=== PATIENT | female | born 1970 | race Caucasian/White ===

== ENCOUNTER 2019-01-02 07:57 | Day surgery (SDC) | payer BC ==
[~2019-01-02] VITALS: Ht 167.6 cm; Wt 81.7 kg
[~2019-01-02 07:57] MED LIST: LEXAPRO20 MG PO; MAGNESIUM400 M1 PO
[2019-01-02] MEDS ORDERED: DEXTROAMP-AMPHE15 MG PO (08:11)
--- NOTE | 2019-01-02 09:22 | NUR ---
PT TAKEN TO RADIOLOGY SL.
--- NOTE | 2019-01-02 10:51 | NUR ---
RETURNED FROM [facility].
--- NOTE | 2019-01-02 12:58 | NUR ---
01/02/19 1258 FANTASMA MARIN PATIENT ARRIVED FROM OR AT 1248. PATIENT RESTING COMFORTABLY. PATIENT HAS A NATURAL AIRWAY AND 02 SAT ARE AT 100 PERCENT. PATIENT RESPONDS TO VOICE AND FOLLOWS INSTRUCTIONS. PATIENT DENIES PAIN AND NAUSEA. VITALS SIGNS ARE WITHIN 20% OF PRE OP VITALS.
[2019-01-02] MEDS ORDERED: IBUPROFEN600 MG PO (13:03)
[2019-01-02] MEDS ORDERED: OXYCODON-ACETA1 EAC2 PO (13:03)
[2019-01-02] MEDS ORDERED: TYLENOL EXTRA500 MG PO (13:03)
--- NOTE | 2019-01-03 10:24 | OR ---
[facility] [address], [place] [address] Signed DATE OF OPERATION: 01/02/2019 SURGEON: Zeina Palacios MD PREOPERATIVE DIAGNOSIS: Left abnormal mammogram, lower central breast. POSTOPERATIVE DIAGNOSIS: Left abnormal mammogram, lower central breast, palpable nodule identified. PROCEDURE: Needle localized excisional breast biopsy, left side. ANESTHESIA: General LMA; Zeina Sellers CRNA INDICATION: This 48-year-old white woman is a patient of Maricel Guy, and underwent mammographies, where she was found to have a very subtle nodule that was highly suspicious in the posterior aspect of the left breast. Conventional mammogram and ultrasound found it difficult to allow for percutaneous biopsy. An MRI was performed showing the lesion to be highly suspicious for cancer. It is in a peculiar position in the central left breast next to the chest wall. As conventional image guided biopsy is not possible, consideration is made for a needle localized excisional biopsy. The risks of bleeding, infection, cosmetic deformity, need for additional treatment of cancers found, and other unforeseen complications including failure to identify the lesion were all reviewed with the patient and her . They understand and wished to proceed. FINDINGS: Wire localization was challenging, but was accomplished. One of the wires was a bit too short in its trajectory, the other is a bit too long, but with these facts in mind, wide excision next to the chest wall allowed for complete extirpation of the tissue including the lesion itself. The lesion once excised was palpable and a clip was used to noemy it in the specimen. Specimen radiograph confirmed the lesion in question to be in the excised specimen. DESCRIPTION OF PROCEDURE: The patient was received from radiology suite, having had difficult localization, but with two wires emanating from the lateral inferior aspect of the left breast. Review of the images with radiologist allowed for an optimal approach to the lesion, which was Electronically Signed By: ZEINA PALACIOS MD 01/03/19 [facility] PATIENT NAME: MATTIE WHITE OPERATIVE REPORT DATE OF : 74 REPORT #: [id number] PHYSICIAN: ZEINA PALACIOS MD PCP: MARICEL GUY PA-C REPORT IS CONFIDENTIAL AND NOT TO BE RELEASED WITHOUT AUTHORIZATION [facility] [address], [place] [address] Signed considered difficult in its position for imaging. She was given a general LMA type anesthetic. Preoperative antibiotic Ancef was given. Sequential compression device stockings were used. The breast was prepared with spray Betadine solution and draped sterilely. An inferolateral incision was made in the left breast, not far from where the wires emanated from the breast in line of the natural skin tension and breast crease. Dissection was carried through the dermis. The wires were delivered into the wound. A flap was elevated superiorly and medially and excision with cautery undertaken. Following of the wire showed the appropriate path and dissection was carried mindful of position of both localizing wires. Dissection was carried near the chest wall as well. Indeed, the pectoralis was the posterior aspect of the margin. Wide full excision certainly to the central portion of the breast was undertaken. Explantation of the breast tissue showed good hemostasis. Palpation of the specimen revealed a nodule, which was hard and highly suspicious for malignancy. This was marked with a clip for radiologist orientation. Specimen radiograph confirmed the lesion in question to be in the excised specimen. Irrigation was undertaken in the wound. There was good hemostasis. Electrocautery was used to assure that. The wound was closed in layers in interrupted 2-0 Vicryl and running subcuticular 3-0 Vicryl for the skin. Steri-Strips were applied as was a Mepilex silver sponge dressing and an OpSite. The procedure was prolonged, complicated, and difficult, but accomplished safely and successfully. MD KACEY Quintanilla/MIGUELL /[id number] cc: KELSEY Solo MD Copies: KEITH BILL MD ~ Electronically Signed By: ZEINA PALACIOS MD 01/03/19 1024 PATIENT NAME: MATTIE WHITE OPERATIVE REPORT DATE OF : 74 REPORT #: [id number] PHYSICIAN: ZEINA PALACIOS MD PCP: MARICEL GUY PA-C REPORT IS CONFIDENTIAL AND NOT TO BE RELEASED WITHOUT AUTHORIZATION
--- NOTE | 2019-01-05 17:25 | PATH ---
[facility] [address] [facility] [place], [place] [address] Signed SPECIMEN(S): A LEFT LOWER CENTRAL BREAST SPECIMEN SOURCE: A. LEFT LOWER CENTRAL BREAST CLINICAL HISTORY: Lesion suspicious for malignancy based on imaging studies. Left breast excisional biopsy with imaging guided needle localization. 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 - Specimen integrity: Intact. - Tumor size: 1.1 x 0.9 x 0.8 cm. - Histologic type: Invasive ductal carcinoma. - Histologic grade: - Tubular formation: 3 of 3. - Nuclear pleomorphism: 2 of 3. - Mitotic rate: 1 of 3. - Total score: 6 of 9, grade 2 of 3. - Margins: All examined margins of excision free of neoplasm. - Closest margin: 0.2 cm. - Ductal carcinoma in situ: Present, low grade, solid/cribriform, no comedonecrosis. - Margin free, >0.5 cm. - Lobular carcinoma in situ: Absent. - Lymphovascular invasion: Not identified. - Microcalcifications: Not identified. - Additional pathologic findings: Small foci of fibrocystic disease with the features of fibrosis, cyst formation, usual ductal hyperplasia, sclerosing adenosis. - Estrogen receptor by immunohistochemistry: 95% positive, staining intensity 2-3+/4+. - Progesterone receptor by immunohistochemistry: 95% positive, staining intensity 3+-4+/4+. - Ki-67 index: 11.6% - Pathologic staging: pT1c PNX - HER2 by FISH will be performed and reported as an addendum. PATIENT NAME: MATTIE WHITE PATHOLOGY DATE OF : 74 REPORT #: [id number] PHYSICIAN: [facility] PCP: MARICEL CHENG PA-C REPORT IS CONFIDENTIAL AND NOT TO BE RELEASED WITHOUT AUTHORIZATION [facility] [address] [place], [place] [address] Signed COMMENT: As part of [employer]' Quality Improvement Program, this case was reviewed by another member of our pathology staff. BERTA:NRT:cml:C1NR MICROSCOPIC EXAMINATION: Histologic sections of all submitted blocks are examined by light microscopy. These findings, together with the gross examination, support the pathologic diagnosis. Immunostains for E-cadherin and smooth muscle myosin heavy chain are obtained along with appropriately positive controls on material from cassettes (A1, A2). Immunostains for estrogen receptor, progesterone receptor and Ki-67 are obtained along with appropriately positive controls on material from cassette (A2). HER2 by FISH is performed on material from cassette (A2) and will be reported as an addendum. GROSS DESCRIPTION: The specimen, labeled "CP left lower central breast," is received in formalin and consists of a 51 g, unoriented portion of yellow-peng fibroadipose tissue that is 8.7 x 5.2 x 3.0 cm. The specimen is received within an Accu grid plate and radiograph. Two metal localization wires are present. A radiograph identifies an area of interest. The corresponding area on the specimen is inked green. The remainder of the specimen is inked black. The specimen is serially sectioned perpendicular to the long axis, revealing a 1.1 x 0.9 x 0.8 cm white, firm stellate mass, which is located within the area of interest, 0.6 cm from the closest green soft tissue resection margin, and 0.7 cm from the closest black soft tissue resection margin. Adjacent to this mass is a folded metallic clip. Approximately 90% of the specimen is a yellow-peng greasy adipose tissue and 10% is a pink rubbery fibrous tissue. Channel Rebuilder sections are submitted in nine cassettes. Cassette summary: (A1-A3) mass to closest soft tissue resection margins (A4-A7) soft tissue resection margins, business center representative sections (A9-A10) fibroadipose tissue. Cold ischemia time: Insufficient data to calculate. Approximate Formalin time: 12-36 hours. FB (under the direct supervision of a pathologist) The Gross Description was prepared using a voice recognition system. The PATIENT NAME: MATTIE WHITE PATHOLOGY DATE OF : 74 REPORT #: [id number] PHYSICIAN: DEONDRE SEGURA PCP: MARICEL CHENG PA-C REPORT IS CONFIDENTIAL AND NOT TO BE RELEASED WITHOUT AUTHORIZATION [address] [address] Signed report was reviewed for accuracy; however, sound-alike word errors, addition and/or deletions may occur. If there is any question about this report, please contact Client Services. ADDITIONAL NOTES: Immunohistochemical and/or in situ hybridization studies were performed on this case with the appropriate positive controls that react as expected. This test was developed and its performance characteristics determined by [facility] [facility]. It has not been cleared or approved by the U.S. Food and Drug Administration. The FDA has determined that such clearance or approval is not necessary. This test is used for clinical purposes. It should not be regarded as investigational or for research. [facility] [facility] is certified under the Clinical Laboratory Improvement Amendments of 1988 (CLIA) as qualified to perform high complexity clinical laboratory testing. PERFORMING LABORATORY: The technical component was performed by [facility] [facility], [address] [place] [id number] (Compensation Programs Manager: Nguyen Craig MD; CLIA# [id number]). [facility] [address] [place] [address] (Compensation Programs Manager: Doni Torres MD; CLIA# [id number]). Diagnostician: Doni Torres MD Pathologist Electronically Signed 01/05/2019 Copies: ~ PATIENT NAME: MATTIE WHITE PATHOLOGY DATE OF : 74 REPORT #: [id number] PHYSICIAN: DEONDRE SEGURA PCP: MARICEL CHENG PA-C REPORT IS CONFIDENTIAL AND NOT TO BE RELEASED WITHOUT AUTHORIZATION
== END 2019-01-02 14:30 | disposition home or self-care (01) ==
LOC: OPS 07:57 → DS 07:58 → OPS 09:00 → DS 09:00 → EDSTATUS 09:00 → MAM 09:30 → OPS 09:30
PROVIDERS: Surgery
PROC: 0HBU0ZX Excision of Left Breast, Open Approach, Diagnostic (ICD-10-PCS; principal; 2019-01-02 10:45)
DX: C50.112 Malignant neoplasm of central portion of left female breast (principal); F32.9 Major depressive disorder, single episode, unspecified; F17.210 Nicotine dependence, cigarettes, uncomplicated; F41.9 Anxiety disorder, unspecified; G89.29 Other chronic pain; Z17.0 Estrogen receptor positive status [ER+]; Z88.0 Allergy status to penicillin; Z79.899 Other long term (current) drug therapy
CPT/HCPCS: 00404; 19281; 76098; 99406; J0131; J0690; J1100; J1644; J1885; J2405; J2704; J2765; J3010; J7120

== ENCOUNTER 2019-02-28 06:25 | Day surgery (SDC) | payer BC ==
[~2019-02-28] VITALS: Ht 167.6 cm; Wt 80.7 kg
[~2019-02-28 06:25] MED LIST changes: +DEXTROAMP-AMPHE15 MG PO; +IBUPROFEN600 MG PO; +OXYCODON-ACETA1 EAC2 PO; +TYLENOL EXTRA500 MG PO
--- NOTE | 2019-02-28 08:01 | NUR ---
to xray with network support technician per [id number].
--- NOTE | 2019-02-28 09:09 | NUR ---
pt returned from xray. iv connected and running,site benign. denies any needs. at bs.
[2019-02-28] MEDS ORDERED: IBUPROFEN600 MG PO (11:57)
[2019-02-28] MEDS ORDERED: OXYCODON-ACETA1 EAC2 PO (11:57)
[2019-02-28] MEDS ORDERED: TYLENOL EXTRA500 MG PO (11:58)
--- NOTE | 2019-02-28 12:14 | NUR ---
PT IS BACK TO DS FROM PACU. SHE IS BACK TO HER BASELINE, IS AT THE BEDSIDE. HE IS LEAVING TO DROP OFF RX. PT IS TOLERATING SIPS OF WATER. CALL LIGHT WITHIN REACH. NO ADDITIONAL NEEDS.
--- NOTE | 2019-02-28 12:15 | NUR ---
02/28/19 1215 Maggie Vieira 1122 PT ARRIVED IN PACU NON RESPONSIVE WITH OPA IN PLACE ON RA. O2 SATS 87%. 02 AT 6L VIA MASK PLACED AND SATS INCREASED TO 99%. 1037 OFIRMEV 1GM GIVEN IV PER ANESTHESIA REQUEST. 1140 PT REACTIVE. OPA REMOVED. 1145 PT SITTING UP IN BED VISITING WITH STAFF. 1155 DR AT BEDSIDE TALKING WITH PT. ALL QUESTIONS ANSWERED. 1205 TO DS ROOM 10. RX GIVEN TO SPOUSE.
--- NOTE | 2019-02-28 12:56 | NUR ---
MARIA DOLORES 1230: [facility] CALLED FOR BREAST PRINTING TECHNICIAN. SHE IS GOING TO STOP BY FOR A QUICK CONSULT.
--- NOTE | 2019-02-28 13:07 | NUR ---
BREAST BINITROTOLUENE OPERATOR IN WITH PT UPON ENTERING THE ROOM. SHE HAS STARTED TO GET HERSELF DRESSED. SHE IS TOLERATING WATER AND PUDDING. CALL LIGHT WITHIN REACH. NO ADDITIONAL NEEDS.
--- NOTE | 2019-02-28 14:31 | NUR ---
PT AND ARE GIVEN VERBAL DC INSTRUCTIONS, THEY BOTH VERBALIZE UNDERSTANDING. PT AND ARE SHOWN HOW TO CARE FOR THE AKASH DRAIN. QUESTIONS ARE ANSWERED. PT IS TAKEN TO VEHICLE VIA WC, SHE IS TABLE TO TRANSFER HERSELF FORM WC TO VEHICLE.
--- NOTE | 2019-03-02 16:20 | OR ---
[facility] [address] [place], [place] [address] Signed DATE OF OPERATION: 02/28/2019 SURGEON: Zeina Palacios MD PREOPERATIVE DIAGNOSES: 1. 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 2. Negative margins on infiltrating ductal carcinoma and negative but small margin on ductal carcinoma in situ (0.5 mm). POSTOPERATIVE DIAGNOSES: 1. 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 2. Negative margins on infiltrating ductal carcinoma and negative but small margin on ductal carcinoma in situ (0.5 mm). 3. Frozen pathology and sentinel lymph nodes negative. PROCEDURES: 1. Injection of left breast for sentinel lymph node identification with methylene blue dye. 2. Deep axillary sentinel lymph node biopsies. 3. Left partial mastectomy (re-excision of prior partial mastectomy site with application of clips for marking). ANESTHESIA: General LMA; Tyrell Buckley, EXECUTIVE CHEF and local 10 mL of 0.25% Marcaine with epinephrine. DRAINS: 7 mm Daniel (submammary). INDICATION: This 48-year-old white woman is a patient of Maricel Guy, and known to me from the past. She underwent mammography, which demonstrated a suspicious lesion of the left breast in the central portion not far from the pectoralis muscle itself. This was considered inaccessible for adequate image-guided biopsy. On that basis, she underwent a left needle localized excisional biopsy through an incision in the inframammary crease on the left lateral aspect. The lesion was confirmed to be an infiltrating ductal breast carcinoma 1.1 cm in size with an ER/CO positive and HER-2/fabien negative. The margin on the infiltrating ductal carcinoma was negative. There was some additional DCIS noted nearby. That margin was also negative at 0.5 mm. She does not have family Electronically Signed By: ZEINA PALACIOS MD 03/02/19 1620 PATIENT NAME: MATTIE WHITE OPERATIVE REPORT DATE OF : 74 REPORT #: [id number] PHYSICIAN: ZEINA PALACIOS MD PCP: MARICEL GUY PA-C REPORT IS CONFIDENTIAL AND NOT TO BE RELEASED WITHOUT AUTHORIZATION [facility] [address] [place], [place] [address] Signed history of breast cancer. She has been advised by medical oncologist and radiation therapist that additional margin should be undertaken of the ductal carcinoma in situ as the current standard is dependent on a 2 mm margin currently. Although, I advised her that additional resection usually results in no evidence of retained malignancy, she does wish to pursue additional re-excision and on that basis, she will not only undergo staging sentinel lymph node biopsy, but re-excision of the biopsy cavity site despite its complex location. The risks of bleeding, infection, need for axillary dissection, and other unforeseen complications related to operation was reviewed with her. She understands and wished to proceed. FINDINGS: Good uptake was noted with radionuclide to at least three lymph nodes of the left axilla. Methylene blue dye was only minimally taken up in the lymph nodes. Arborization in the region of the areola was noted. As regard to re-excision of the previous partial mastectomy, this was challenging as it was located in the central portion of the breast. Wide excision was undertaken including the slick cavity from which excision was undertaken. Dissection was carried down to and including portions of the pectoralis muscle. A drain was left in place on the possibility of seroma formation. Frozen pathology confirmed no evidence of malignancy in the sentinel lymph nodes evaluated. DESCRIPTION OF PROCEDURE: The patient was brought to the operating room, given a general LMA type anesthetic. Preoperative antibiotic Ancef was given. Sequential compression device stockings used and heparin subcutaneously administered. Radionuclide injection by Dr. Hou showed up taken to the left axilla as expected. The left breast was gently prepared with alcohol swab in the areolar margin on the left side. An injection of 1 mL of methylene blue dye in the subepithelial space was undertaken. The left breast and axilla were then prepared with a chlorhexidine solution rather a Betadine-based solution and draped sterilely. The previous incision from the partial mastectomy was in the inferior mammary crease laterally. Interrogation of left axilla with a C-Trak probe was undertaken and the area of maximum uptake incised and dissection carried through the subcutaneous tissue and axillary fat Electronically Signed By: ZEINA PALACIOS MD 03/02/19 1620 PATIENT NAME: MATTIE WHITE OPERATIVE REPORT DATE OF : 74 REPORT #: [id number] PHYSICIAN: ZEINA PALACIOS MD PCP: MARICEL GUY PA-C REPORT IS CONFIDENTIAL AND NOT TO BE RELEASED WITHOUT AUTHORIZATION [facility] [address] [place] [id number] Signed with blunt dissection. Using the sterile covered probe, axillary lymph node tissue was identified. There did not appear to be much blue uptake in the nodes. Initial node was excised and clips were applied to the lymphatic and vascular pedicles associated with it. This was labeled sentinel lymph node #1. It was quite hot on the probe. Additional dissection was undertaken and several lymph nodes were identified, some of which had no radionuclide or dye uptake. These were excised incidentally with that at least two other clearly hot sentinel nodes. Several clips remain in the axilla on this. These sentinel lymph nodes were sent for frozen pathology and the wound was then packed when there was minimal additional radio signal in the axilla. While the pathologist was working on frozen pathology, re-excision of the previous biopsy cavity was undertaken. An incision was made in the inframammary lateral aspect as before and dissection carried through the subcutaneous tissue with electrocautery. Using Allis clamps to grasp the tissue, a wide resection was undertaken of the biopsy/partial mastectomy tract. Notably, this extended to the central portion of the breast and down to the pectoralis. A seroma cavity type area was identified and this was excised as well including the pectoralis fascia itself. Clips were applied to the area for future boost radiation therapy if deemed appropriate. Hemostasis was assured with some clips and electrocautery throughout. Irrigation was undertaken showing no sign of ongoing bleeding. Given the extent of dissection and so forth, it was deemed advisable to place a drain in the submammary space. Through a separate stab incision, a 7 mm Daniel drain was placed in this area. The wound was closed with interrupted 2-0 Vicryl and a running subcuticular 3-0 Vicryl. Re-examination of the axilla showed no sign of bleeding. This wound was closed with interrupted 2-0 Vicryl and running subcuticular 3-0 Vicryl as well. At this point, the frozen pathology of the sentinel lymph nodes confirmed none to have metastatic breast cancer. Steri-Strips were applied to the wounds as well as a conversion of a silver sponge dressing to each site. The drain was applied to bulb suction after being secured to the skin with nylon suture. She was ultimately extubated and transferred to recovery room in good condition having suffered no complications. Sponge, needle, and instrument counts reported as correct x3. MD KACEY Quintanilla/MODL /[id number] Electronically Signed By: ZEINA PALACIOS MD 03/02/19 1620 PATIENT NAME: MATTIE WHITE OPERATIVE REPORT DATE OF : 74 REPORT #: [id number] PHYSICIAN: ZEINA PALACIOS MD PCP: MARICEL GUY PA-C REPORT IS CONFIDENTIAL AND NOT TO BE RELEASED WITHOUT AUTHORIZATION [address] [address] Signed cc: MD Johnathan Thacekr MD Jacqueline Brown, PA-C Copies: KEITH HOU MD, ROBERT C MD ~ Electronically Signed By: ZEINA PALACIOS MD 03/02/19 1620 PATIENT NAME: MATTIE WHITE OPERATIVE REPORT DATE OF : 74 REPORT #: [id number] PHYSICIAN: ZEINA PALACIOS MD PCP: MARICEL GUY PA-C REPORT IS CONFIDENTIAL AND NOT TO BE RELEASED WITHOUT AUTHORIZATION
--- NOTE | 2019-03-05 10:17 | PATH ---
[facility] [address] [facility] [place], [place] [address] Signed SPECIMEN(S): A LEFT SENTINEL LYMPH NODE SPECIMEN(S): B LEFT SENTINEL LYMPH NODE SPECIMEN(S): C LEFT SENTINEL LYMPH NODE SPECIMEN(S): D LEFT BREAST SPECIMEN(S): E LEFT BREAST ADDITIONAL TISSUE SPECIMEN(S): F LEFT BREAST ADDITIONAL AXILLARY TISSUE SPECIMEN SOURCE: A. LEFT SENTINEL LYMPH NODE B. LEFT SENTINEL LYMPH NODE C. LEFT SENTINEL LYMPH NODE D. LEFT BREAST E. LEFT BREAST ADDITIONAL TISSUE F. LEFT BREAST ADDITIONAL AXILLARY TISSUE CLINICAL HISTORY: Left breast cancer. Left breast lumpectomy with SLN biopsy with possible axillary dissection with frozen. FROZEN SECTION DIAGNOSIS: A.[place] lymph node #1: - Negative for carcinoma. Canleo Broussard DO 02/28/19 11:17 a.m. B.[place] lymph node #2: - Negative for carcinoma. Canelo Broussard DO 02/28/19 11:17 a.m. C.Left axilla lymph node, marked by suture: - Negative for carcinoma. Canelo Broussard DO 02/28/19 11:17 a.m. DDF:cml FINAL PATHOLOGIC DIAGNOSIS: A. Left axillary sentinel lymph node #1, excision: - One lymph node, negative for metastatic malignancy on HE and immunostained slides. B. Left axillary sentinel lymph nodes #2 and #3, excision: - Two lymph nodes, negative for metastatic malignancy on HE and immunostained slides. C. Left axillary sentinel lymph nodes, excision: - Three left axillary sentinel lymph nodes, negative for metastatic malignancy on HE and immunostained slides. PATIENT NAME: MATTIE WHITE PATHOLOGY DATE OF : 74 REPORT #: [id number] PHYSICIAN: DEONDRE SEGURA PCP: MARICEL CHENG PA-C REPORT IS CONFIDENTIAL AND NOT TO BE RELEASED WITHOUT AUTHORIZATION [facility] [address] [place], [place] [address] Signed D. Left breast, re-excision of partial mastectomy site: - Negative for residual invasive mammary carcinoma. - Prominent postoperative change including fat necrosis granulation tissue. - Mammary dysplasia with the features of fibrosis and cyst formation. - One focus of atypical lobular hyperplasia (block D9). - 0.2 cm from blue inked margin. - Small focus of fibroadenomatoid change. E. Left breast, previous partial mastectomy site, additional tissue: - Negative for malignancy. - Postoperative change present. - Focal fibrocystic disease with the features of fibrosis and cyst formation. - Small fragment of skeletal muscle present. F. Left breast, additional axillary tissue: - Two lymph nodes, negative for metastatic malignancy on HE and immunostained sections. LJA:cml:C2NR MICROSCOPIC EXAMINATION: A. Sections of left sentinel lymph node #1 are negative for the presence of metastatic malignancy on HE stained sections. Immunostain for CKAE1/AE3 is obtained along with an appropriately positive control and is also negative for the presence of metastatic malignancy. B. Sections reveal two sentinel lymph nodes. Material from cassette B1 and B2 are both negative for the presence of metastatic malignancy on HE stained sections. Material from cassette B2 is almost exhausted. Per protocol immunostain for CKAE1/AE3 is obtained along with an appropriately positive control on B1 and B2, and is negative for the presence of metastatic malignancy. C. Sections reveal two lymph nodes negative for metastatic malignancy on HE stained sections. Immunostain for CKAE1/AE3 is obtained along with an appropriately positive control on material from cassette C1, C2 and C3 and is negative for the presence of metastatic malignancy. D. There is a small area of possible atypical lobular hyperplasia in block D9. Immunostains fro e-cadherin and SMMHC are obtained along with appropriately positive controls, with results supporting a diagnosis of atypical lobular hyperplasia, margin free of lesion. F. Sections reveal two lymph nodes negative for metastatic malignancy on HE stained sections. Immunostain for CKAE1/AE3 is obtained along with an appropriately positive control on material from PATIENT NAME: MATTIE WHITE PATHOLOGY DATE OF : 74 REPORT #: [id number] PHYSICIAN: DEONDRE SEGURA PCP: MARICEL CHENG PA-C REPORT IS CONFIDENTIAL AND NOT TO BE RELEASED WITHOUT AUTHORIZATION [address] [address] Signed cassette F1 and F2 and is negative for the presence of metastatic malignancy. Histologic sections of all submitted blocks are examined by light microscopy. These findings, together with the gross examination, support the pathologic diagnosis. GROSS DESCRIPTION: Six specimens are received in six containers, labeled "CP." A. The specimen, labeled "CP," and designated on the requisition "sentinel lymph node #1," is received fresh for frozen section diagnosis and consists of a 2.5 x 1.7 x 0.4 cm peng-pink fragment that upon dissection reveals a 0.8 x 0.7 x 0.4 cm, possible lymph node. The lymph node is bisected and entirely submitted for frozen section and resubmitted as received in cassette (A1). Only adipose tissue remains within the container. B. The specimen, labeled "CP," and designated on the requisition "sentinel lymph node #2 and #3," is received fresh for frozen section diagnosis and consists of a 2.5 x 2.5 x 0.7 cm, peng-pink fibrofatty tissue that upon dissection reveals a 0.9 x 0.5 x 0.4 cm, possible lymph node and a second 1.2 x 0.7 x 0.5 cm lymph node. The lymph nodes are submitted for frozen section and resubmitted as received in cassettes (B1 and B2). Only adipose tissue remains within the container. Pipe Maker sections are submitted in two cassettes. Cassette summary: (B1) Smaller possible lymph node, frozen. (B2) Larger possible lymph node, frozen. C. The specimen, labeled "CP," and designated on the requisition "left axilla sentinel lymph node, marked by suture," is received fresh for frozen section diagnosis and consists of a 2.8 x 2.5 x 0.6 cm, peng-pink fibrofatty tissue with metallic clip and suture at one end. The specimen is serially sectioned to reveal two possible lymph nodes that measure 1.4 x 0.7 x 0.5 cm and a 1.1 x 0.7 x 0.5 cm. The lymph nodes are submitted for frozen section and resubmitted as received in cassettes (C1-C2). Upon further dissection of the adipose tissue an additional fragmented, possible lymph node is present measuring 1.6 cm in greatest dimension. Only adipose tissue remains within the container. Pipe Maker sections are submitted in three cassettes. Cassette summary: (C1) Larger possible lymph node, frozen. (C2) Smaller possible lymph node, frozen. PATIENT NAME: MATTIE WHITE PATHOLOGY DATE OF : 74 REPORT #: [id number] PHYSICIAN: DEONDRE SEGURA PCP: MARICEL CHENG PA-C REPORT IS CONFIDENTIAL AND NOT TO BE RELEASED WITHOUT AUTHORIZATION [facility] [address] [place], [place] [address] Signed (C3) Portion of possible lymph node, fragmented. D. The specimen, labeled "CP," and designated on the requisition "re-excision partial mastectomy site," is received in formalin and consists of a 44 g, unoriented portion of fibroadipose tissue that is 9.5 x 6.6 x 3.4 cm. The specimen contains a fragmented biopsy cavity wall that is 9.2 x 5.2 cm. The opposite surface is yellow-peng multilobulated and inked blue. The specimen is serially sectioned perpendicular to the long axis revealing approximately 90% of the specimen is yellow-peng greasy adipose tissue and 10% is a pink-white rubbery fibrous tissue. The specimen displays focal areas of yellow-peng chalky material. No discrete mass lesions are grossly identified. The specimen is entirely submitted in cassette (D1-D34). E. The specimen, labeled "CP," and designated on the requisition "additional tissue," is received in formalin and consists of a 5 g, unoriented portion of fibroadipose tissue that is 4.1 x 2.5 x 1.4 cm. The specimen is inked blue and serially sectioned perpendicular to the long axis revealing a pink-white rubbery fibrous tissue, with areas of yellow chalky material and a hemorrhagic filled cystic structure that is 0.6 cm in greatest dimension. No discrete mass lesions are grossly identified. The specimen is entirely submitted in cassettes (E1-E4). F. The specimen, labeled "CP," and designated on the requisition "left breast additional axillary tissue," is received in formalin and consists of 3.0 x 2.5 x 1.6 cm aggregate of yellow-peng adipose tissue with metallic clips, that upon dissection reveals two possible lymph nodes that measure 1.0 cm and 0.9 cm in greatest dimension. These lymph nodes are serially sectioned and submitted for histologic examination. Only adipose tissue and metallic clips remain within the container. Pipe Maker sections are submitted in two cassettes. Cassette summary: (F1) One possible lymph node, serially sectioned. (F2) One possible lymph node, serially sectioned. FB (under the direct supervision of a pathologist) ADDITIONAL NOTES: Immunohistochemical and/or in situ hybridization studies were performed on this case with the appropriate positive controls that react as expected. This test was developed and its performance characteristics determined by [facility]. It has not been cleared or approved by the U.S. Food and Drug Administration. The FDA has determined that PATIENT NAME: MATTIE WHITE PATHOLOGY DATE OF : 74 REPORT #: [id number] PHYSICIAN: DEONDRE SEGURA PCP: MARICEL CHENG PA-C REPORT IS CONFIDENTIAL AND NOT TO BE RELEASED WITHOUT AUTHORIZATION [address] [address] Signed such clearance or approval is not necessary. This test is used for clinical purposes. It should not be regarded as investigational or for research. [facility] is certified under the Clinical Laboratory Improvement Amendments of 1988 (CLIA) as qualified to perform high complexity clinical laboratory testing. PERFORMING LABORATORY: The [facility], [address] [place] [id number] (Supervisor [employer]fitting: Doni Torres MD; CLIA# [id number]). The technical component [place] [address] (Supervisor [employer]: Nguyen Craig MD; CLIA# [id number]). Professional interpretation was performed [facility], [address] [address] (Supervisor [employer]: Doni Torres MD; CLIA# [id number]). Diagnostician: Doni Torres MD Pathologist Electronically Signed 03/05/2019 Copies: ~ PATIENT NAME: MATTIE WHITE PATHOLOGY DATE OF : 74 REPORT #: [id number] PHYSICIAN: DEONDRE PATHOLOGY PCP: MARICEL CHENG PA-C REPORT IS CONFIDENTIAL AND NOT TO BE RELEASED WITHOUT AUTHORIZATION
== END 2019-02-28 14:20 | disposition home or self-care (01) ==
LOC: DS 06:25 → OPS 06:25 → NUC 07:30 → OPS 07:30 → EDSTATUS 07:30 → NUC 09:00 → OPS 14:20
PROVIDERS: Surgery
PROC: 0HBU0ZZ Excision of Left Breast, Open Approach (ICD-10-PCS; principal; 2019-02-28 08:30)
PROC: 07B60ZX Excision of Left Axillary Lymphatic, Open Approach, Diagnostic (ICD-10-PCS; 2019-02-28 08:30)
DX: D24.2 Benign neoplasm of left breast (principal); N60.12 Diffuse cystic mastopathy of left breast; N62 Hypertrophy of breast; N64.1 Fat necrosis of breast; F32.9 Major depressive disorder, single episode, unspecified; F17.210 Nicotine dependence, cigarettes, uncomplicated; Z79.899 Other long term (current) drug therapy; Z88.0 Allergy status to penicillin; Z23 Encounter for immunization
CPT/HCPCS: 78195; 90688; A9541; J0131; J0690; J1100; J1644; J1885; J2405; J2704; J3010; J7121; Q9968

== ENCOUNTER 2019-08-22 08:56 | Day surgery (SDC) | payer BC ==
[~2019-08-22] VITALS: Ht 167.6 cm; Wt 80.7 kg
[2019-08-22] MEDS ORDERED: NORCO 5-325 TA1 EACH PO (09:15)
--- NOTE | 2019-08-22 09:47 | NUR ---
OXYGEN REDUCED TO 1L VIA NC AFTER VITALS TAKEN. CONTINUOUS PULSE OXIMETER IN PLACE. HOB ELEVATED PER PATIENT REQUEST. PATIENT DRINKING WATER AND TOLERATING THAT WELL.
--- NOTE | 2019-08-22 11:52 | NUR ---
08/22/19 1152 Maggie Vieira 1140 PT ARRIVED IN PACU NON RESPONSIVE TO NOXIOUS STIMULI WITH OPA IN PLACE. 1147 PT REACTIVE. OPA REMOVED. 1150 PT WITH NO C/O'S.
--- NOTE | 2019-08-22 12:27 | NUR ---
ICED WATER AND PUDDING GIVEN. CALL LIGHT WITHIN REACH. PATIENT'S PHONE HANDED TO HER PER HER REQUEST.
--- NOTE | 2019-08-22 13:35 | OR ---
[facility] [address] [place], [place] [address] Signed DATE OF OPERATION: 08/22/2019 SURGEON: Zeina Palacios MD PREOPERATIVE DIAGNOSES: 1. History of left inferior/posterior stage I breast carcinoma, status post partial mastectomy and sentinel lymph node biopsy and radiation therapy (Dr. Eriberto Campo). 2. Peau d'orange changes of left breast with marked inflammation, swelling, mass, and inferior breast crease necessitation. POSTOPERATIVE DIAGNOSES: 1. History of left inferior/posterior stage I breast carcinoma, status post partial mastectomy and sentinel lymph node biopsy and radiation therapy (Dr. Eriberto Campo). 2. Peau d'orange changes of left breast with marked inflammation, swelling, mass, and inferior breast crease necessitation. 3. Probable sterile breast abscess and cavity with fibrosis. PROCEDURE: 1. Exam under anesthesia. 2. Incision and drainage of left breast sterile abscess. 3. Sharp and banjo curette debridement of fibrotic wound cavity including partial excision of wound cavity (breast biopsy). 4. Excision of skin portion. 5. Placement of SNAP wound VAC, negative pressure wound device. ANESTHESIA: General LMA, Tyrell Buckley CRNA. INDICATION: This 48-year-old white woman, a patient of Maricel Guy and well known to me having undergone left breast lumpectomy with sentinel lymph node biopsy as well as re-excision for wide margins. She has undergone radiation therapy under the direction of Dr. Campo and has completed radiation therapy. In the past several weeks, she has had increasing edema of the breast, fullness and firmness of the breast and found to have peau d'orange changes and inferior breast crease with fungating skin abnormalities suggestive of possible breast cancer recurrence. Evaluation by Dr. Campo was undertaken and saw her yesterday. She has had no fever or chills, and given her early stage breast cancer, it is quite unlikely she has had early recurrence of breast cancer though it is not impossible. I think clinically more likely represent sterile necrosis of the excision site related to intensive radiation therapy. She is admitted at this time to undergo Electronically Signed By: ZEINA PALACIOS MD 08/22/19 1335 PATIENT NAME: MATTIE WHITE OPERATIVE REPORT DATE OF : 74 REPORT #: [id number] PHYSICIAN: ZEINA PALACIOS MD PCP: MARICEL GUY PA-C REPORT IS CONFIDENTIAL AND NOT TO BE RELEASED WITHOUT AUTHORIZATION [facility] [address] [place] [id number] Signed incision and drainage of the area as well as debridement as an appropriate and other indicated procedures. The risks of bleeding, infection, cosmetic deformity, failure to cure her symptoms, and need for additional treatment has been reviewed with her and her , they understand and wished to proceed. FINDINGS: Peau d'orange changes of the left breast were noted. The superior aspect of the breast was soft and supple near necessitation of 2 separate areas in the inferior breast crease were noted. Incision delivered, fluid that was under pressure, no emmy purulence and certainly no odor associated with the material. A cheesy stringy necrotic substance was noted within the cavity, which was extensively debrided. A firm fibrous capsule related to prior excision was noted. This was excised in portions so as to provide evaluation for recurrent breast cancer, however, unlikely that might be. The skin edges which were compromised were excised as well. Ultimately, a SNAP wound VAC device was placed, 8 x 8 cm in size to allow for a negative pressure wound therapy approach for healing of the cavity. DESCRIPTION OF PROCEDURE: The patient was brought to the operating room, given a general anesthetic by LMA technique. Preoperative antibiotic Ancef was given. Sequential compression device stockings were used and heparin subcutaneously administered. The left breast was prepared with a chlorhexidine solution and draped sterilely after photographs were taken. The inferior breast crease had two areas of necessitation incision with a #15 blade showed egress of straw-colored fluid under pressure. Photographs were taken showing this egress. The inferior breast crease was ultimately excised completely allowing for evaluation of the cavity. Within it was a cheesy thickened mucoid material that was yellow in color. This was debrided sharply after cultures were obtained. A banjo curette was used to scarify the sterile abscess cavity. The tissue was quite dense and firm. No doubt related to radiation therapy. The portions of the cavity were excised with electrocautery revealing only further vulcanized appearing cavity tissue. Hemostasis was assured with electrocautery. It was unclear whether additional excision of the cavity koenig would be a benefit under the circumstances. Hemostasis was assured. Irrigation undertaken and ultimately an 8 x 8 cm blue sponge SNAP negative pressure wound VAC device applied to the cavity. Good suction was maintained. The patient was ultimately extubated and transferred to the recovery room in good condition. Note was made of marked improvement of the clinical appearance of the breast regarding its edema and swelling initially after operation. Blood loss was less than 25 mL. Sponge, needle, and instrument counts were reported as correct x3. Electronically Signed By: ZEINA PALACIOS MD 08/22/19 1335 PATIENT NAME: MATTIE WHITE OPERATIVE REPORT DATE OF : 74 REPORT #: [id number] PHYSICIAN: ZEINA PALACIOS MD PCP: MARICEL GUY PA-C REPORT IS CONFIDENTIAL AND NOT TO BE RELEASED WITHOUT AUTHORIZATION [facility] [address] [place] [address] [place], [place] [address] Signed Zeina Palacios MD JM/MODL /[id number] cc: Eriberto Campo MD, PH.D. MD Maricel Thacker PA Copies: ERIBERTO CAMPO CYNTHIA SUE MD ~ Electronically Signed By: ZEINA PALACIOS MD 08/22/19 1335 PATIENT NAME: MATTIE WHITE OPERATIVE REPORT DATE OF : 74 REPORT #: [id number] PHYSICIAN: ZEINA PALACIOS MD PCP: MARICEL GUY PA-C REPORT IS CONFIDENTIAL AND NOT TO BE RELEASED WITHOUT AUTHORIZATION
--- NOTE | 2019-08-22 13:45 | NUR ---
PATIENT IS UP TO THE BATHROOM WITH MY STANDBY. PATIENT AMBULATES WELL AND VOIDS 200 ML CLEAR, YELLOW URINE. DISCHARGE INSTRUCTIONS ARE GIVEN AND PATIENT VERBALIZES UNDERSTANDING. PATIENT IS GETTING DRESSED.
--- NOTE | 2019-08-22 13:46 | NUR ---
MESSAGE SENT TO DR. PALACIOS REGARDING PAIN RX - PATIENT IS REQUESTING RX FOR PAIN.
--- NOTE | 2019-08-22 14:11 | NUR ---
LE 1350:DR PALACIOS PRESENTS TO PATIENT'S ROOM WITH RX FOR PAIN PERCOCET 7.5/325 MG. EXTRA SNAP CANNISTER SENT WITH THE PATIENT. PATIENT IS DRESSED, TRANSFERS HERSELF TO THE WHEELCHAIR AND THEN TO PERSONAL VEHICLE AND TOLERATES THAT WELL.
--- NOTE | 2019-08-28 17:35 | PATH ---
[facility] [address] [place], [place] [address] Signed SPECIMEN(S): A LEFT BREAST, PRODUCT OF DEBRIDEMENT SPECIMEN SOURCE: A. LEFT BREAST, PRODUCT OF DEBRIDEMENT CLINICAL HISTORY: I D w/drainage of left breast abscess. FINAL PATHOLOGIC DIAGNOSIS: Breast, left, products of debridement, excision: - Dermal and breast tissue with fibrosis, acute inflammation, abscess formation, and reactive changes. - Epidermis with reactive changes and acute inflammation. - Negative for carcinoma. - See comment. COMMENT: The history of radiation therapy to this area is noted. Cellular atypia is present and is consistent radiation-induced cellular changes. Correlation with culture findings is recommended. As part of [employer] [facility] Quality Improvement Program, this case was reviewed by another member of our pathology staff. NAL:cml:C2NR MICROSCOPIC EXAMINATION: Histologic sections of all submitted blocks are examined by light microscopy. These findings, together with the gross examination, support the pathologic diagnosis. GROSS DESCRIPTION: The specimen, labeled "CP," and designated "left breast product of debridement" per the requisition is received in formalin and consists of 17 g of yellow-peng to white-peng soft to fibrous, and partially devitalized tissue (6.0 x 5.4 x 2.5 cm). The specimen is serially sectioned to show a yellow-peng to white-peng and hemorrhagic cut surface. Car Inspector sections are submitted in cassette (A1). AC (under the direct supervision of a pathologist) The Gross Description was prepared using a voice recognition system. The report was reviewed for accuracy; however, sound-alike word errors, addition and/or deletions may occur. If there is any PATIENT NAME: MATTIE WHITE PATHOLOGY DATE OF : 74 REPORT #: [id number] PHYSICIAN: DEONDRE SEGURA PCP: MARICEL CHENG PA-C REPORT IS CONFIDENTIAL AND NOT TO BE RELEASED WITHOUT AUTHORIZATION [facility] [address] [place] [address] Signed question about this report, please contact Client Services. PERFORMING LABORATORY: The technical component was [place] [address] (Head Of Biology: Nguyen Craig MD; CLIA# [id number]).Professional interpretation was performed by [employer] [facility], [address] [address] (CLIA# [id number]). Diagnostician: Leida Gambino MD Pathologist Electronically Signed 08/28/2019 Copies: ~ PATIENT NAME: MATTIE WHITE PATHOLOGY DATE OF : 74 REPORT #: [id number] PHYSICIAN: DEONDRE SEGURA PCP: MARICEL CHENG PA-C REPORT IS CONFIDENTIAL AND NOT TO BE RELEASED WITHOUT AUTHORIZATION
== END 2019-08-22 14:05 | disposition home or self-care (01) ==
LOC: OPS 08:56 → DS 08:59 → OPS 11:00 → DS 11:00 → OPS 14:05
PROVIDERS: Surgery
PROC: 0H9U0ZZ Drainage of Left Breast, Open Approach (ICD-10-PCS; principal; 2019-08-22 11:00)
DX: N61.1 Abscess of the breast and nipple (principal); N60.32 Fibrosclerosis of left breast; F32.9 Major depressive disorder, single episode, unspecified; Z88.0 Allergy status to penicillin; Z79.899 Other long term (current) drug therapy; Z87.891 Personal history of nicotine dependence
CPT/HCPCS: 00400; 87070; 87075; 87077; 87186; 87205; J0690; J1100; J1644; J1885; J2001; J2405; J2704; J3010; J7121